=== PATIENT | male | born 1985 | race Caucasian/White ===

== ENCOUNTER 2018-01-27 19:29 | Observation (INO) | payer OTHER ==
[~2018-01-27] VITALS: Ht 177.8 cm; Wt 104.3 kg
--- NOTE | 2018-01-27 19:34 | ED SKIN/ALLERGY COMPLAINT ---
History of Present Illness General Chief Complaint: Allergy Symptoms Stated Complaint: ALLERGIC REACTION Source: patient, family, EMS Exam Limitations: no limitations Allergies Coded Allergies: No Known Drug Allergies (NKDA 01/27/18) tree nut (ANAPHYLAXIS 01/28/18) Triage Nurses Notes Reviewed? yes Onset: Abrupt Duration: minute(s):, constant Timing: recent history Severity: mild, moderate No Modifying Factors: none HPI: 32-year-old male comes into the emergency room for further evaluation of allergic reaction. Patient reports he is allergic to nuts. He had a pizza tonight that he thought had chocolate on him but it was not telemetry. Patient started experience immediately some throat tightening and difficulty breathing and uses the EpiPen. History of anaphylaxis. Brought in by ambulance. Denies any other symptoms at this time. (Matheus Bond) Vital Signs & Intake/Output Vital Signs & Intake/Output Vital Signs Date Time Temp Pulse Resp B/P B/P Pulse O2 O2 Flow FiO2 Mean Ox Delivery Rate 01/28 1326 97 Room Air Room Air 01/28 0858 81 18 135/65 98 01/28 0619 99 Room Air 01/28 0605 98.2 72 18 121/65 99 Room Air 01/28 0216 97.9 83 18 126/73 96 Room Air 01/27 2348 98.7 79 18 122/76 97 Room Air 01/27 2217 75 16 110/66 96 Room Air 01/27 2135 97.7 86 20 95/50 96 Room Air 01/27 2015 96 Room Air 01/27 1937 98.9 106 20 134/82 96 Room Air ED Intake and Output 01/28 0000 01/27 1200 Intake Total 1000 Output Total Balance 1000 Intake, IV 1000 Intake, Oral 0 Patient 230 lb Weight Weight Reported by Patient Measurement Method Reconcile Medications Epinephrine (Epipen 2-Leo) 0.3 MG/0.3 ML AUTO.INJCT 1 INJ IM PRN ANAPHYLAXIS (Reported) Omeprazole 20 MG CAPSULE.DR 1 CAP PO DAILY gerd (Reported) (Alyssa FORTUNE,Brian Spence) Past History Travel History Traveled to [place] past 21 day No Medical History Any Pertinent Medical History? none Surgical History Surgical History: non-contributory Family History Hx Contributory? No (Matheus Bond) Review of Systems Review of Systems Constitutional: Reports: no symptoms. EENTM: Reports: no symptoms. Respiratory: Reports: no symptoms. Cardiovascular: Reports: no symptoms. GI: Reports: no symptoms. Genitourinary: Reports: no symptoms. Musculoskeletal: Reports: no symptoms. Skin: Reports: no symptoms. Neurological/Psychological: Reports: no symptoms. Hematologic/Endocrine: Reports: no symptoms. Immunologic/Allergic: Reports: see HPI. All Other Systems: Reviewed and Negative (Matheus Bond) Physical Exam Physical Exam General Appearance: well developed/nourished, mild distress Head: atraumatic Eyes: Bilateral: normal appearance. Ears, Nose, Throat: normal ENT inspection, hearing grossly normal, no angioedema Neck: normal inspection Respiratory: normal breath sounds, no respiratory distress Cardiovascular: regular rate/rhythm Back: normal inspection Extremities: normal inspection, normal range of motion, no edema Neurologic/Psych: awake, alert, oriented x 3, normal mood/affect Skin: intact (Matheus Bond) Progress Differential Diagnosis: abscess/cellulitis, allergic reaction, anaphylaxis, angioedema, asthma, drug reaction Initial ED EKG: normal sinus rhythm, rate (83) Repeat EKG: unchanged Hand-Off Endorsed To: Alyssa FORTUNE,Brian Spence (Matheus Bond) Plan of Care: Orders Procedure Date/time Status Regular Diet 01/28 B Active LACTIC ACID 01/28 1153 Complete LACTIC ACID 01/28 0900 Complete Teach/Educate 01/28 0642 Active Pain Treatment and Response 01/28 0642 Active Nutritional Intake, Monitor 01/28 0642 Active Isolation 01/28 0642 Active Patient Care Conference 01/28 0642 Active TSH REFLEX 01/28 0600 Complete TROPONIN LEVEL 01/28 0600 Complete MAGNESIUM 01/28 0600 Complete LIPID PANEL 01/28 0600 Complete LACTIC ACID 01/28 0600 Complete GLYCOSYLATED HGB 01/28 0600 Complete CBC WITHOUT DIFFERENTIAL 01/28 0600 Complete BASIC ELECTROLYTES PLUS BUN&CR 01/28 0600 Complete EKG 01/28 0600 Active TRC EVALUATION (GEN) 01/28 0404 Active Pathway - chart 01/28 0404 Active House Staff 01/[address] in observation 01/28 0337 Active Patient Data 01/28 0332 Active EKG 01/28 0242 Active Saline Lock 01/28 0236 Active Misc Message 01/28 0236 Active ED Holding Orders 01/28 0236 Active Vital Signs 01/28 0236 Active Code Status 01/28 023 Active Add-on Test (ER Only) 01/28 023 Active URINE DRUG SCREEN FOR ER ONLY 01/28 023 Complete TROPONIN LEVEL 01/28 0013 Complete EKG 01/28 0013 Active VTE Mechanical Prophylaxis 01/28 UNK Active Activity/Ambulation 01/28 UNK Active Intake & Output 01/27 2150 Active TROPONIN LEVEL 01/27 2051 Complete ETHANOL 01/28 2040 Complete COMPREHENSIVE METABOLIC PANEL 01/28 2040 Complete CBC WITHOUT DIFFERENTIAL 01/28 2040 Complete EKG 01/28 2040 Active Current Medications Sig/Rony Start time Last Medication Dose Stop Time Status Admin Sodium Chloride 125 ML CONTINOUS INFUSION 01/28 1045 AC (Normal Saline 0.9%) Aspirin 81 MG DAILY 01/28 09 AC 01/28 (Aspirin) 0829 Enoxaparin Sodium 40 MG DAILY 01/28 0900 AC 01/28 (Lovenox) 0829 Prednisone 20 MG DAILY 01/28 0900 AC 01/28 0829 Acetaminophen 650 MG Q6P PRN 01/28 0415 AC (Tylenol) Diphenhydramine HCl 50 MG Q6P PRN 01/28 0415 AC (Benadryl) Laboratory Tests 01/28/18 1246: Lactic Acid 3.0 H 01/28/18 0904: Lactic Acid 3.9 H 01/28/18 0611: Anion Gap 14, Estimated GFR > 60, BUN/Creatinine Ratio 25.7 H, Hemoglobin A1c 5.2, Lactic Acid 2.5 H, Magnesium 1.9, Troponin I 0.05, Triglycerides 55, Cholesterol 227 H, LDL Cholesterol, Calc 160 H, HDL Cholesterol 56, Cholesterol/HDL Ratio 4, TSH &T3 &Free T4 Intrp 0.867, CBC w Diff MAN DIFF ORDERED, RBC 5.28, MCV 91.2, MCH 30.9, MCHC 33.9, RDW 13.9, MPV 7.5, Gran % 93.3 H, Lymphocytes % 6.2 L, Monocytes % 0.3 L, Eosinophils % 0, Basophils % 0.2, Absolute Granulocytes 18.2 H, Segmented Neutrophils 76 H, Band Neutrophils 13 H, Absolute Lymphocytes 1.2, Lymphocytes 9 L, Monocytes 2, Absolute Monocytes 0.1, Absolute Eosinophils 0, Absolute Basophils 0, Platelet Estimate ADEQUATE, Normocytic RBCs VERIFIED, Normochromic RBCs VERIFIED 01/28/18 0605: Urine Opiates Screen < 100, Methadone Screen 58, Barbiturate Screen < 60, Ur Phencyclidine Scrn < 6.00, Amphetamines Screen < 100, U Benzodiazepines Scrn < 85, Urine Cocaine Screen < 50, Urine Cannabis Screen < 5.00 01/28/18 0039: Troponin I 0.16 *H 01/27/182050: Anion Gap 20 H, Estimated GFR > 60, BUN/Creatinine Ratio 17.8, Glucose 119 H, Calcium 9.3, Total Bilirubin 0.4, AST 33, ALT 50, Alkaline Phosphatase 55, Troponin I 0.04, Total Protein 7.9, Albumin 4.8, Globulin 3.1, Albumin/Globulin Ratio 1.5, CBC w Diff NO MAN DIFF REQ, RBC 5.02, MCV 90.7, MCH 31.1 H, MCHC 34.3, RDW 13.7, MPV 7.5, Gran % 53.3, Lymphocytes % 36.2, Monocytes % 5.0, Eosinophils % 5.1 H, Basophils % 0.4, Absolute Granulocytes 6.6 H, Absolute Lymphocytes 4.5 H, Absolute Monocytes 0.6, Absolute Eosinophils 0.6, Absolute Basophils 0.1, Serum Alcohol 44.0 Diagnostic Imaging: Viewed by Me: Radiology Read. Discussed w/RAD: Radiology Read. CXR Impression: PATIENT: JUVENAL JACK PRESENT AGE: 32 PATIENT ACCOUNT NO: [id number] : 86 LOCATION: [facility] ORDERING PHYSICIAN: Brian Shah MD SERVICE DATE: 01/28/18 EXAM TYPE: RAD - XRY-PORTABLE CHEST XRAY EXAMINATION: CHEST 1 VIEW CLINICAL INFORMATION: Positive troponin. COMPARISON: None. TECHNIQUE: An AP view of the chest is provided. FINDINGS: The cardiac silhouette is not enlarged. The mediastinal and hilar contours are unremarkable. There are neither pleural effusions nor pneumothoraces. There is mild nonspecific streaky bibasilar opacification. The osseous structures are unremarkable. IMPRESSION: Mild nonspecific streaky bibasilar opacification. Recommendation is for a followup chest series to be obtained following treatment and/or resolution of symptoms to assure resolution of this appearance. DICTATED BY: Timothy Mccarty MD DATE/TIME DICTATED:01/28/18307 LOGISTICS PLANNING MANAGER:MARITA DATE/TIME TRANSCRIBED:01/28/18307 CONFIDENTIAL, DO NOT COPY WITHOUT APPROPRIATE AUTHORIZATION. <Electronically signed in Other Vendor System> SIGNED BY: Timothy Mccarty MD 01/28/18311 (Brian Shah MD) Departure Departure Disposition: STILL A PATIENT Condition: Stable Departure Forms: Customer Survey General Discharge Information (Matheus Bond) Departure Clinical Impression Primary Impression: Anaphylaxis Secondary Impressions: Elevated troponin I level Comments 01/28/18, 2:12am... discussed with dr. grigsby (cards)... pt merits admission, aspirin, no need for heparin. Admission Note Spoke With: Lucas Bone MD Documentation of Exam: Documentation of any treatments & extenuating circumstances including Concerns Regarding Discharge (functional status, medication knowledge or non-compliance, living conditions, etc.) that warrant an admission rather than observation: pt with +troponin in context of anaphylactic reaction... pt merits tele, monitoring, serial ekg's, cards eval in AM. Observation Note Spoke With: Lucas Bone MD Place Patient In: Non-ED OBS Care Area Rationale for Observation: My rational for observation is as follows . see above ... obs per hospital team. PA/AGENCY TRAINER Co-Sign Statement Statement: ED Attending supervision documentation- [x] I saw and evaluated the patient. I have also reviewed all the pertinent lab results and diagnostic results. I agree with the findings and the plan of care as documented in the PA's/AGENCY TRAINER's documentation. pt with +trop (see admit note) [] I have reviewed the ED Record and agree with the PA's/AGENCY TRAINER's documentation. [] Additions or exceptions (if any) to the PAs/AGENCY TRAINER's note and plan are summarized below: [] (Brian Shah MD) Critical Care Note Critical Care Note Critical Care Time: 30-74 min (Brian Shah MD) Critical Care Note Critical Care Note Critical Care Time: 30-74 min (Brain Shah MD)
[2018-01-27 21:16] LABS: ABSOLUTE BASOPHIL COUNT 0.1 /CUMM (0.0-0.2); ABSOLUTE EOSINOPHIL COUNT 0.6 /CUMM (0.0-0.7); ABSOLUTE GRANULOCYTE CT 6.6 /CUMM (1.4-6.5); ABSOLUTE LYMPH COUNT 4.5 /CUMM (1.2-3.4); ABSOLUTE MONOCYTE COUNT 0.6 /CUMM (0.10-0.60); BASOPHIL % 0.4 % (0.0-2.0); EOSINOPHIL % 5.1 % (0-5); GRANULOCYTE % 53.3 % (42.2-75.2); HEMATOCRIT 45.5 % (42-52); MEAN CORPUSCULAR HGB 31.1 PG (27.0-31.0); MEAN CORPUSCULAR HGB CONC 34.3 G/DL (33.0-37.0); MEAN CORPUSCULAR VOLUME 90.7 FL (80.0-94.0); MEAN PLATELET VOLUME 7.5 FL (7.4-10.4); PLATELET COUNT 336 /CUMM (130-400); RBC DISTRIBUTION WIDTH 13.7 % (11.5-14.5); RED BLOOD CELL CT 5.02 /CUMM (4.70-6.10); WHITE BLOOD CELL COUNT 12.4 /CUMM (4.8-10.8)
[2018-01-28] MEDS ORDERED: EPIPEN 2-P0.3 MG/0.3 IM ×2 (00:44→15:52)
[2018-01-28] MEDS ORDERED: MEDROL4 M2 PO (00:44)
[2018-01-28] MEDS ORDERED: HYDROXYZINE PAM50 M1 PO (00:44)
--- NOTE | 2018-01-28 02:56 | History & Physical ---
Ashutosh Ha 01/28/18 0255: General Information and HPI MD Statement: I have seen and personally examined JUVENAL JACK and documented this H&P. The patient is a 32 year old M who presented with a patient stated chief complaint of [allergic reaction]. Source of Information: patient, family Exam Limitations: no limitations History of Present Illness: Juvenal is a 32-year-old man with past medical history significant for nut allergy and he came chief complaint of an allergic reaction after eating food that contained nuts. He was relatively fine in the evening of the day of admission when he had some food and he thinks it might have contained some nuts (nutella), right after he ingested the food, when he was in his truck, he was feeling tightness in his throat and tried to make himself vomit to get the food out of his stomach to decrease the level of allergic reaction. He went and got his EpiPen and injected himself in his thigh. Shortly after that he had chest pain which was nonradiating, in the center of chest and then the same time he felt numbness in his left arm and weakness in his lower extremities, his mentioned that he was feeling warm at that time. So they came to ED for more evaluation. He does not report any headache, lightheadedness, dizziness, palpitation, shortness of breath. He also reports that he has a long history of acid reflux and he sometimes gets chest pain from it but this time he believes that the pain was more intense and different. He has a long history of allergic reactions due to nuts, and he had an EpiPen at home, the last time that he recalls he has used EpiPen was about 10 years ago. He also reports that he had asthma many years ago. Allergies/Medications Allergies: Coded Allergies: No Known Drug Allergies (NKDA 01/27/18) tree nut (ANAPHYLAXIS 01/28/18) Home Med list Epinephrine (Epipen 2-Leo) 0.3 MG/0.3 ML AUTO.INJCT 1 INJ IM X1 PRN SEVERE ALLERGIC REACTION Omeprazole 20 MG CAPSULE. 1 CAP PO DAILY gerd (Reported) Compliance With Home Meds: GOOD Past History Travel History Traveled to [place] past 21 day No Surgical History Surgical History: non-contributory Past Family/Social History Family History Relations & Conditions if any Relation not specified for: FHx: cardiovascular disease Review of Systems Review of Systems Constitutional: Reports: see HPI. EENTM: Reports: no symptoms. Cardiovascular: Reports: see HPI. Respiratory: Reports: see HPI. GI: Reports: see HPI, nausea. Genitourinary: Reports: no symptoms, see HPI. Musculoskeletal: Reports: see HPI. Skin: Reports: see HPI. Neurological/Psychological: Reports: see HPI. Hematologic/Endocrine: Reports: see HPI. Exam & Diagnostic Data Last 24 Hrs of Vital Signs/I&O Vital Signs Date Time Temp Pulse Resp B/P B/P Pulse O2 O2 Flow FiO2 Mean Ox Delivery Rate 01/28 0619 99 Room Air 01/28 0605 98.2 72 18 121/65 99 Room Air 01/28 0216 97.9 83 18 126/73 96 Room Air 01/27 2348 98.7 79 18 122/76 97 Room Air 01/27 2217 75 16 110/66 96 Room Air 01/27 2135 97.7 86 20 95/50 96 Room Air 01/27 2015 96 Room Air 01/27 1937 98.9 106 20 134/82 96 Room Air Intake & Output 01/28 0800 01/28 0000 01/27 1600 Intake Total 1000 1000 Output Total Balance 1000 1000 Intake, IV 1000 1000 Intake, Oral 0 Patient 230 lb Weight Weight Reported by Patient Measurement Method Physical Exam General Appearance Alert, Oriented X3, Cooperative, No Acute Distress Skin No Rashes, No Breakdown Skin Temp/Moisture Exam: Warm/Dry Sepsis Skin Exam (color): Normal for Ethnicity HEENT Atraumatic, PERRLA, EOMI Neck Supple, No JVD, No LAD Cardiovascular Regular Rate, Normal S1, Normal S2, No Murmurs Lungs Clear to Auscultation, Normal Air Movement Abdomen Normal Bowel Sounds, Soft, No Tenderness Neurological Normal Speech, Strength at 5/5 X4 Ext, Sensation Intact, Cranial Nerves 3-12 NL Extremities No Clubbing, No Cyanosis, No Edema Vascular Normal Pulses, Pulses Symmetrical Sepsis Peripheral Pulse Location: Radial Sepsis Peripheral Pulse Exam: Normal Sepsis Cap Refill Exam: <2 Sec Assessment/Plan Assessment: Juvenal is a young man who was here with past medical history of allergy and anaphylaxis who came to ED for evaluation of an allergic reaction. At the time of interview the patient had no complaints, no chest pain, no shortness of breath. Physical examination had no significant finding regarding her cardiopulmonary system or upper respiratory airways. EKG showed normal sinus rhythm, normal axis, heart rate of 78, and nonspecific T inversion in lead III. CBC showed a WBC of 12.4. Electrolytes were within normal limits. He had a high anion gap of 20 and his troponin was 0.16. The patient received methylprednisolone, pantoprazole, aspirin 325, promethazine, and IV normal saline, Based on the history and physical examination the patient seems to have had an anaphylactic reaction caused by the food that he had taken. He was stable at the time of H and P, no chest pain, no shortness of breath. He had a positive troponin which was probably caused due to his anaphylactic reaction and epinephrine injection which might have caused some minute injury to cardiac cells due to overworking of his heart. He also had a lactic acid of 2.5 which is probably caused by the decreased perfusion in anaphylactic shock, so it is prudent to give him more intravenous normal saline. The patient was admitted to telemetry unit for close observation of his status and serial check of troponin and EKG, and cardiology consultation, follow-up of lactic acid. Problem list: -Anaphylactic reaction --Urine gap metabolic acidosis -Elevated troponin As Ranked By This Provider Problem List: 1. Anaphylaxis 2. Elevated troponin I level Core Measures/Misc (03/23) Acute Coronary Syndrome ACS Diagnosis: No Congestive Heart Failure Congestive Heart Failure Diagnosis No Cerebrovascular Accident CVA/TIA Diagnosis: No VTE (View Protocol) VTE Risk Factors Acute Medical Illness No Mechanical VTE Prophylaxis d/t N/A MechProphylax Ordered No VTE Pharm Prophylaxis d/t NA PharmProphylax ordered Sepsis (View protocol) Sepsis Present: No If YES complete Sepsis Event Note If YES complete Sepsis Event Note Misael Terry MD 01/28/18 0300: Core Measures/Misc (03/23) Sepsis (View protocol) If YES complete Sepsis Event Note If YES complete Sepsis Event Note Observation Initial Note - I have personally examined JUVENAL JACK on 01/28/18 at 0840. The disposition of JUVENAL JACK is uncertain at this time and before a determination can be made, he requires a period of observation for the following reasons: * Telemetry monitoring * Serial troponin / EKG * Vital signs / oxygenation monitoring * Cardiology consultation Resident Review Statement Resident Statement: examined this patient, discussed with customer marketing intern, agreed with customer marketing intern, reviewed EMR data (avail) Other Findings: History of present illness 32-year-old man with past medical history of nut allergy and anaphylaxis seen for evaluation of an "allergic reaction". He ate a food item this evening that he felt may have contained nutella. Shortly after ingesting the food he developed throat swelling and attempted to make himself vomit. He ran out to his truck to grab his Epigen and injected himself. He developed shortness of breath and chest pain for which he came to the [facility] ED. Review of system Otherwise she denies any headache, fever, chills, blurred/double vision, lightheadedness/dizziness, chest pain, palpitations, heartburn, shortness breath , cough, nausea, vomiting, diarrhea, constipation, abdominal pain, urinary complaints, numbness, tingling, or weakness. Objective Vital signs: Temp 97.7-98.9, HR 75-106, RR 16-20, BP 95-134/50-82, SPO2 96-97% on RA Physical exam -General: Well-developed, well-nourished young man in no acute distress -HEENT: NCAT, Azeem, EOMI, anicteric sclera, moist mucous membranes, normal- appearing oropharynx, no facial swelling -Neck: Supple, no JVD, trachea midline, no accessory respiratory muscle use -Cardio: Normal S1/S2 without murmurs/gallops/rubs; regular rate and rhythm -Pulmonary: Clear to auscultation bilaterally -Abdomen: Soft, nontender, nondistended, bowel sounds intact -Neuro: Awake and alert, cranial nerves II through XII grossly intact -Extremities: Normal pulses, no swelling Labs/imaging/studies -CBC: WBC 12.4, hemoglobin 15.6, hematocrit 45.5, platelet 336 -BMP: NA 144, K3.9, CL 103, CO2 21, BUN 16, creatinine 0.9, anion gap 20, glucose 119 -LFT: Within normal limits -Miscellaneous: Troponin I 0.16, EtOH 44 -EKG: Normal sinus rhythm with LVH by voltage criteria Assessment 32-year-old man with history of allergy and anaphylaxis seen for evaluation of a "allergic reaction". Presently patient states that he feels well and has no complaints. Vital signs remain within normal limits, physical examination demonstrates a normal cardiopulmonary and oropharyngeal examination. Labs including CBC, serum chemistry, hepatic function panel, are significant for WBC 12.4, anion gap 20, and troponin I 0.16. In the ED patient received Solu-Medrol, famotidine, Protonix, full-strength aspirin, antiemetics, and intravenous normal saline. Clinically patient appears to have had an anaphylactic reaction secondary to his known had not allergy for which he injected himself with his EpiPen. Patient appears stable now without any respiratory distress. His elevated leukocytosis, anion gap, and troponin are likely reactive secondary to his increased adrenergic response from his anaphylactic reaction and epinephrine injection. Patient denies a personal history of heart disease, dyslipidemia, hypertension, smoking, or diabetes and other than male gender and obesity has no other cardiovascular risk factors; he does admit to an extensive family history of cardiovascular disease however. Collectively patient has a low pretest probability for ongoing coronary artery disease. Patient is to be placed under observation on the telemetry floor for telemetry monitoring, serial troponin/EKG , steroids, and cardiology consultation. Problem list -Anaphylaxis -Anion gap metabolic acidosis -Elevated troponin -History of tree nut allergy and anaphylaxis -Obesity Plan -Place under observation on telemetry floor -Telemetry monitoring -Total respiratory care -EpiPen at bedside -Prednisone 20 mg p.o. daily -Benadryl 50 mg IV every 6 hours as needed for shortness of breath/facial swelling -Aspirin 81 mg p.o. daily -consult with cardiology for elevated troponin -Trend troponin/EKG until peak or 3 negative sets -check lipid panel, HbA1c, TSHR -Pain control with acetaminophen -Regular Diet -DVT prophylaxis with Lovenox -Full code Lucas Bone MD 01/28/18 0329: Core Measures/Misc (03/23) Sepsis (View protocol) If YES complete Sepsis Event Note If YES complete Sepsis Event Note Attending MD Review Statement Attending Statement Attending MD Statement: examined this patient, discuss w/resident/PA/VARNISHER, agreed w/resident/PA/VARNISHER, reviewed EMR data (avail) Attending Assessment/Plan: 32M PMH tree-nut anaphylactic allergy, was in his usual state of health when he decided to eat some Nutella. He immediately felt chest pressure and recognized signs of impending anaphylaxis (has required intubation on several occasions in his teenage years), tried to self-induce vomiting and failed, and gave himself an Epinephrine shot. His breathing improved, but he felt some mid-sternal chest pressure, so came to ER. Chest pressure was described as mid, non-radiating, non-exertional. It was not associated with lightheadedness, diaphoresis, or palpitations. He is currently asymptomatic, pleasant, and has no complaints. Physical exam is normal. EKG is NSR without acute changes. Labs unremarkable except for troponin, which is 0.16. Patient has no personal or family cardiac history, no history of HTN/HLD/T2DM, does not smoke or use drugs. Was given Solumedrol, Pepcid, Phenergen in ED. 1. Chest pain at rest 2. Elevated troponin 3. Anaphylaxis to tree nuts Plan - Observation in telemetry - Serial cardiac enzymes and EKG - Cardiology consult - Continue ASA - Avoid tree nuts - Check TSH, lipids, HbA1c - DVT PPx
[2018-01-28] MEDS ORDERED: OMEPRAZOLE20 M2 PO (03:07)
--- NOTE | 2018-01-28 03:12 | RADIOLOGY REPORT ---
EXAMINATION: CHEST 1 VIEW CLINICAL INFORMATION: Positive troponin. COMPARISON: None. TECHNIQUE: An AP view of the chest is provided. FINDINGS: The cardiac silhouette is not enlarged. The mediastinal and hilar contours are unremarkable. There are neither pleural effusions nor pneumothoraces. There is mild nonspecific streaky bibasilar opacification. The osseous structures are unremarkable. IMPRESSION: Mild nonspecific streaky bibasilar opacification. Recommendation is for a followup chest series to be obtained following treatment and/or resolution of symptoms to assure resolution of this appearance.
[2018-01-28 06:53] LABS: ABSOLUTE BASOPHIL COUNT 0 /CUMM (0.0-0.2); ABSOLUTE EOSINOPHIL COUNT 0 /CUMM (0.0-0.7); EOSINOPHIL % 0 % (0-5); MEAN CORPUSCULAR HGB 30.9 PG (27.0-31.0)
[2018-01-28 06:58] LABS: ABSOLUTE GRANULOCYTE CT 18.2 /CUMM (1.4-6.5); ABSOLUTE LYMPH COUNT 1.2 /CUMM (1.2-3.4); ABSOLUTE MONOCYTE COUNT 0.1 /CUMM (0.10-0.60); BASOPHIL % 0.2 % (0.0-2.0); HEMATOCRIT 48.2 % (42-52); MEAN CORPUSCULAR HGB CONC 33.9 G/DL (33.0-37.0); MEAN CORPUSCULAR VOLUME 91.2 FL (80.0-94.0); MEAN PLATELET VOLUME 7.5 FL (7.4-10.4); PLATELET COUNT 280 /CUMM (130-400); RBC DISTRIBUTION WIDTH 13.9 % (11.5-14.5); RED BLOOD CELL CT 5.28 /CUMM (4.70-6.10)
[2018-01-28 07:02] LABS: GRANULOCYTE % 93.3 % (42.2-75.2)
[2018-01-28 07:03] LABS: WHITE BLOOD CELL COUNT 19.5 /CUMM (4.8-10.8)
--- NOTE | 2018-01-28 07:22 | Event Note ---
Event Note Event Note: Patient seen and examined. He has no complaints this morning. He has normal vitals. His lactic acid is elevated to fluids were started NS at 125cc/hr. his WBCs are elevated from 12.4 yesterday to 19.5 today, troponins were elevated on last drop 0.16 but have now normalized to 0.05. His other labs included lipids cholesterol of 227, LDL of 160, normal thyroid function hormones and hemoglobin A1c of 5.2. Patient has risk factors for coronary artery disease of obesity and family history. Patient is not a smoker. We will order a repeat lactic acid 3 hours and if it is trending down and cardio clears him then we can most likely discharge the patient later this evening.
--- NOTE | 2018-01-28 12:52 | PN- Att Addend ---
Attending Addendum Attending Brief Note Anaphalactic reaction in pt with Tree nut allergy after eating some smore pizza with nutella. Self administered epipen. Pt doing ok, no more chest pain and sob. pt will be seen by cardio today due to mild trop elevation which resolved. currently on prednisone and asa. Mild trop elevation- resolved now. cardio consult. Lactic acidosis- will given iv fluids and will recheck lactic acid in afternoon. If doing ok by evening will dc home.
--- NOTE | 2018-01-28 14:40 | Patient Discharge Instructions ---
Discharge Instructions General Discharge Information You were seen/treated for: anaphylaxis with administration epipen causing chest pain Special Instructions: 1. please follow up with pcp in on week 2. please avoid chocolate without confirming no tree nuts present Diet Continue normal diet: Yes Recommended Diet: no tree nuts Activity Full Activity/No Limits: Yes Acute Coronary Syndrome Inclusion Criteria At DC or during hospital stay patient has or had the following: ACS DIAGNOSIS No Discharge Core Measures Meds if any: Prescribed or Continued at Discharge Meds if any: NOT Prescribed or Continued at Discharge Congestive Heart Failure Inclusion Criteria At DC or during hospital stay patient has or had the following: CHF DIAGNOSIS No Discharge Core Measures Meds if any: Prescribed or Continued at Discharge Meds if any: NOT Prescribed or Continued at Discharge Cerebrovascular accident Inclusion Criteria At DC or during hospital stay patient has or had the following: CVA/TIA Diagnosis No Discharge Core Measures Meds if any: Prescribed or Continued at Discharge Meds if any: NOT Prescribed or Continued at Discharge Venous thromboembolism Inclusion Criteria VTE Diagnosis No VTE Type NONE VTE Confirmed by (Test) NONE Discharge Core Measures - Per Current guidelines, there needs to be overlap - treatment for the first 5 days of Warfarin therapy. - If discharged on Warfarin prior to 5 days of - overlap therapy, the patient will need to be - assessed for post discharge needs including - *Post discharge parental anticoagulation - *Warfarin and/or parental anticoagulation education - *Follow up date to check INR post discharge At least 5 days overlap therapy as Inpatient No Meds if any: Prescribed or Continued at Discharge Note: Overlap Therapy is Warfarin and Anticoagulant Meds if any: NOT Prescribed or Continued at Discharge
--- NOTE | 2018-01-28 20:57 | Cons- Cardiology ---
General Information and HPI Consulting Request Date of Consult: 01/28/18 Requested By: Lucas Bone MD Reason for Consult: Positive troponin History of Present Illness: The patient is a 32-year-old male with history of asthma, GERD, and nut allergy who was admitted after an allergic reaction. He unwittingly ingested food containing patella, and he developed swelling of his tongue and tightness in his throat. He injected himself in the thigh with EpiPen and called 911. He subsequently developed chest discomfort which she described as a substernal tightness associated with the numbness in his left arm. The chest discomfort lasted for approximately 20 minutes before resolving. No palpitations. No nausea or vomiting. No lightheadedness or dizziness. No diaphoresis. His paternal grandfather had a myocardial infarction in his 30s, however the patient 's parents have not been diagnosed with heart disease per Allergies/Medications Allergies: Coded Allergies: No Known Drug Allergies (NKDA 01/27/18) tree nut (ANAPHYLAXIS 01/28/18) Home Med List: Epinephrine (Epipen 2-Leo) 0.3 MG/0.3 ML AUTO.INJCT 1 INJ IM PRN ANAPHYLAXIS (Reported) Omeprazole 20 MG CAPSULE. 1 CAP PO DAILY gerd (Reported) Current Medications: Current Medications Sig/Rony Start time Last Medication Dose Route Stop Time Status Admin Acetaminophen 650 MG Q6P PRN 01/28 041 AC PO Aspirin 81 MG DAILY 01/28 900 AC 01/28 PO 08 Aspirin 0 .STK-MED ONE 01/28 802 DC PO Aspirin 0 .STK-MED ONE 01/28 0208 DC PO Aspirin 325 MG ONCE ONE 01/28 0200 DC 01/28 PO 01/28 0201 0214 Diphenhydramine HCl 50 MG Q6P PRN 01/28 0415 AC IV Enoxaparin Sodium 40 MG DAILY 01/28 900 AC 01/28 SC 0829 Enoxaparin Sodium 0 .STK-MED ONE 01/28 802 DC SC Metoclopramide HCl 0 .STK-MED ONE 01/27 2126 DC .ROUTE Pantoprazole Sodium 0 .STK-MED ONE 01/27 2127 DC IV Prednisone 20 MG DAILY 01/28 09 AC 01/28 PO 0829 Prednisone 0 .STK-MED ONE 01/28 08 DC PO Sodium Chloride 125 ML CONTINOUS INFUSION 01/28 1045 AC IV Sodium Chloride 1,000 ML BOLUS ONE 01/28 0700 DC 01/28 IV 01/28 0759 0704 Sodium Chloride 1,000 ML BOLUS ONE 01/27 2145 DC 01/27 IV 01/27 2244 2142 Review of Systems Review of Systems: No rash. No tremor. No melena. All other systems were reviewed, and were noted to be negative. Past History Travel History Traveled to [place] past 21 day No Medical History Gastrointestinal: GERD Surgical History Surgical History: non-contributory Family History Relations & Conditions If Any: PATERNAL GRANDFATHER Heart attack Exam & Diagnostic Data Vital Signs and I&O Vital Signs Date Time Temp Pulse Resp B/P B/P Pulse O2 O2 Flow FiO2 Mean Ox Delivery Rate 01/28 1911 98.1 88 20 148/61 96 Room Air 01/28 1535 98.1 84 18 131/66 96 Room Air 01/28 1326 97 Room Air Room Air 01/28 0858 81 18 135/65 98 01/28 0619 99 Room Air 01/28 0605 98.2 72 18 121/65 99 Room Air 01/28 0216 97.9 83 18 126/73 96 Room Air 01/27 2348 98.7 79 18 122/76 97 Room Air 01/27 2217 75 16 110/66 96 Room Air 01/27 2135 97.7 86 20 95/50 96 Room Air Intake & Output 01/28 1600 01/28 0800 01/28 0000 01/27 1600 01/27 0800 01/27 0000 Intake Total 1000 1000 Output Total Balance 1000 1000 Intake, IV 1000 1000 Intake, Oral 0 Patient 230 lb Weight Weight Reported by Patient Measurement Method Physical Exam: Gen: The patient is in no acute distress HEENT: Normal nose, ears, and oropharynx. Pupils equal bilaterally. Conjunctiva normal. Neck: Supple with no JVD, no masses, and no thyromegaly Lungs: Clear to auscultation with normal respiratory effort Heart: RRR, S1, S2, no murmurs. No peripheral edema, 2+ pulses in the lower extremities bilaterally Abdomen: Soft, nontender, no masses. No hepatomegaly. No splenomegaly Extremities: No clubbing or cyanosis. Normal muscle strength in the upper and lower extremities Skin: Normal skin turgor with no skin ulcers or lesions noted. Neuro: Cranial nerves intact. Sensation intact Psych: Alert and oriented x 3 with appropriate affect Labs/Gurjit Results: Laboratory Tests 01/28 01/28 01/28 1630 1246 0904 Chemistry Lactic Acid (0.7 - 2.1 mmol/L) 1.7 3.0 H 3.9 H 01/28 01/28 01/28 0611 0605 0039 Chemistry Sodium (137 - 145 mmol/L) 141 Potassium (3.5 - 5.1 mmol/L) 4.7 Chloride (98 - 107 mmol/L) 105 Carbon Dioxide (22 - 30 mmol/L) 22 Anion Gap (5 - 16) 14 BUN (9 - 20 mg/dL) 18 Creatinine (0.7 - 1.2 mg/dL) 0.7 Estimated GFR (>60 ml/min) > 60 BUN/Creatinine Ratio (7 - 25 %) 25.7 H Hemoglobin A1c (4.2 - 5.8 %) 5.2 Lactic Acid (0.7 - 2.1 mmol/L) 2.5 H Magnesium (1.6 - 2.3 mg/dL) 1.9 Troponin I (<0.11 ng/ml) 0.05 0.16 *H Triglycerides (<150 mg/dL) 55 Cholesterol (< 200 MG/DL) 227 H LDL Cholesterol, Calc (65 - 129 mg/dL) 160 H HDL Cholesterol (40 - 60 mg/dL) 56 Cholesterol/HDL Ratio (0.00 - 4.88 %) 4 TSH &T3 &Free T4 Intrp (0.27 - 4.20 uIU/mL) 0.867 Hematology CBC w Diff MAN DIFF ORDERED WBC (4.8 - 10.8 /CUMM) 19.5 H RBC (4.70 - 6.10 /CUMM) 5.28 Hgb (14.0 - 18.0 G/DL) 16.4 Hct (42 - 52 %) 48.2 MCV (80.0 - 94.0 FL) 91.2 MCH (27.0 - 31.0 PG) 30.9 MCHC (33.0 - 37.0 G/DL) 33.9 RDW (11.5 - 14.5 %) 13.9 Plt Count (130 - 400 /CUMM) 280 MPV (7.4 - 10.4 FL) 7.5 Gran % (42.2 - 75.2 %) 93.3 H Lymphocytes % (20.5 - 51.1 %) 6.2 L Monocytes % (1.7 - 9.3 %) 0.3 L Eosinophils % (0 - 5 %) 0 Basophils % (0.0 - 2.0 %) 0.2 Absolute Granulocytes (1.4 - 6.5 /CUMM) 18.2 H Segmented Neutrophils (42.2 - 75.2 %) 76 H Band Neutrophils (0.0 - 5.0 %) 13 H Absolute Lymphocytes (1.2 - 3.4 /CUMM) 1.2 Lymphocytes (20.5 - 51.1 %) 9 L Monocytes (1.7 - 9.3 %) 2 Absolute Monocytes (0.10 - 0.60 /CUMM) 0.1 Absolute Eosinophils (0.0 - 0.7 /CUMM) 0 Absolute Basophils (0.0 - 0.2 /CUMM) 0 Platelet Estimate (ADEQUATE) ADEQUATE Normocytic RBCs VERIFIED Normochromic RBCs VERIFIED Toxicology Urine Opiates Screen (>2000 NG/ML) < 100 Methadone Screen (>300 NG/ML) 58 Barbiturate Screen (>200 NG/ML) < 60 Ur Phencyclidine Scrn (>25 NG/ML) < 6.00 Amphetamines Screen (>1000 NG/ML) < 100 U Benzodiazepines Scrn (>200 NG/ML) < 85 Urine Cocaine Screen (>300 NG/ML) < 50 Urine Cannabis Screen (>50 NG/ML) < 5.00 01/27 2051 Chemistry Sodium (137 - 145 mmol/L) 144 Potassium (3.5 - 5.1 mmol/L) 3.9 Chloride (98 - 107 mmol/L) 103 Carbon Dioxide (22 - 30 mmol/L) 21 L Anion Gap (5 - 16) 20 H BUN (9 - 20 mg/dL) 16 Creatinine (0.7 - 1.2 mg/dL) 0.9 Estimated GFR (>60 ml/min) > 60 BUN/Creatinine Ratio (7 - 25 %) 17.8 Glucose (65 - 99 mg/dL) 119 H Calcium (8.4 - 10.2 mg/dL) 9.3 Total Bilirubin (0.2 - 1.3 mg/dL) 0.4 AST (17 - 59 U/L) 33 ALT (21 - 72 U/L) 50 Alkaline Phosphatase (< 127 U/L) 55 Troponin I (<0.11 ng/ml) 0.04 Total Protein (6.3 - 8.2 g/dL) 7.9 Albumin (3.5 - 5.0 g/dL) 4.8 Globulin (1.9 - 4.2 gm/dL) 3.1 Albumin/Globulin Ratio (1.1 - 2.2 %) 1.5 Hematology CBC w Diff NO MAN DIFF REQ WBC (4.8 - 10.8 /CUMM) 12.4 H RBC (4.70 - 6.10 /CUMM) 5.02 Hgb (14.0 - 18.0 G/DL) 15.6 Hct (42 - 52 %) 45.5 MCV (80.0 - 94.0 FL) 90.7 MCH (27.0 - 31.0 PG) 31.1 H MCHC (33.0 - 37.0 G/DL) 34.3 RDW (11.5 - 14.5 %) 13.7 Plt Count (130 - 400 /CUMM) 336 MPV (7.4 - 10.4 FL) 7.5 Gran % (42.2 - 75.2 %) 53.3 Lymphocytes % (20.5 - 51.1 %) 36.2 Monocytes % (1.7 - 9.3 %) 5.0 Eosinophils % (0 - 5 %) 5.1 H Basophils % (0.0 - 2.0 %) 0.4 Absolute Granulocytes (1.4 - 6.5 /CUMM) 6.6 H Absolute Lymphocytes (1.2 - 3.4 /CUMM) 4.5 H Absolute Monocytes (0.10 - 0.60 /CUMM) 0.6 Absolute Eosinophils (0.0 - 0.7 /CUMM) 0.6 Absolute Basophils (0.0 - 0.2 /CUMM) 0.1 Toxicology Serum Alcohol (<10 MG/DL) 44.0 Diagnostic Data EKG Results EKG tracing is independently reviewed, and reveals normal sinus rhythm at 69 with left renal hypertrophy CXR Results Mild nonspecific streaky bibasilar opacification. Recommendation is for a followup chest series to be obtained following treatment and/or resolution of symptoms to assure resolution of this appearance. Assessment/Plan Assessment/Plan The patient is a 32-year-old male with history of not allergy who presented after an allergic reaction to the patella. He developed significant chest discomfort after injecting himself with an EpiPen. He subsequently was noted to have a mild troponin elevation which normalized when the troponin was rechecked. He is now asymptomatic. He has a family history of coronary artery disease at a young age and his grandfather. The chest pain and positive troponin likely represents demand ischemia secondary to epinephrine. There is a possibility that the epinephrine may have been inadvertently injected intravenously, which would potentiate the cardiovascular effects. Recommendations: * Clear for discharge to home from cardiac standpoint * I recommend a stress echo as an outpatient to evaluate for ischemic heart disease given the chest pain and positive troponin * I advised the patient to take aspirin 81 mg daily for cardiac protection. If the stress test is normal, then the aspirin may be discontinued per * Follow up in the office after stress test. * Call or return to the emergency department with further chest pain or other cardiac symptoms Consult Acknowledgment - Thank you for your consult request.
[2018-01-28 21:19] VITALS: BP 133/53
== END 2018-01-28 21:25 ==
LOC: ERH 19:29 → ERHI 01-28 03:37
PROVIDERS: Internal Medicine Interventional Cardiology; Physician Assistant Medical
DX: T78.05XA Anaphylactic reaction due to tree nuts and seeds, initial encounter (principal); E87.2 Acidosis; E66.9 Obesity, unspecified; J45.909 Unspecified asthma, uncomplicated; K21.9 Gastro-esophageal reflux disease without esophagitis; Z79.82 Long term (current) use of aspirin; Z79.52 Long term (current) use of systemic steroids; R07.89 Other chest pain
CPT/HCPCS: 6090; 71045; 80307; 82436; 93005; 93010; 96365; 96372; 96375; 99291; G0378; G0480; J1650; J2550; J2765; J2930; J3490